=== PATIENT | female | born 1985 | race Caucasian/White ===

== ENCOUNTER 2017-09-13 22:10 | Emergency (ER) | payer OTHER ==
[~2017-09-13] VITALS: Ht 165.1 cm; Wt 72.6 kg
--- NOTE | 2017-09-13 23:01 | ED CARDIAC/CP/PALPITATIONS ---
History of Present Illness General Chief Complaint: General Adult Stated Complaint: PANIC ATTACK Source: patient Exam Limitations: no limitations Vital Signs & Intake/Output Vital Signs & Intake/Output Vital Signs Date Time Temp Pulse Resp B/P B/P Pulse O2 O2 Flow FiO2 Mean Ox Delivery Rate 09/14 0030 98.2 92 18 115/76 97 Room Air 09/13 2216 98.1 109 18 114/78 97 Room Air ED Intake and Output 09/14 0000 09/13 1200 Intake Total Output Total Balance Patient 160 lb Weight Weight Reported by Patient Measurement Method Allergies Coded Allergies: cat dander (SNEEZING PER PT 09/13/17) dog dander (SNEEZING PER PT 09/13/17) Triage Note: PT FROM HOME C/O OF ANXIETY ATTACK 45 MINS PRIOR TO ARRIVAL. PT STATES ANXIETY ATTACKS IN THE PAST AND HAS XANEX PRESCRIBED TO PT. PT SELF MEDICATED WITH 2MG XANEX 10 MINS AND 45 MINS PRIOR TO ARRIVAL FOR ATTACK THAT WAS CAUSED BY STRESS. PT STATES HEART RACING, FLUSTERED, DIFFICULTY BREATHING. PT DENIES ARM NUMBNESS/TINGLING, JAW OR BACK PAIN. Triage Nurses Notes Reviewed? yes Onset: Abrupt Duration: hour(s): (1), better, gone now Timing: recent history Quality/Severity: moderate, pressure Location: central Radiation: no radiation Activities at Onset: emotional stress Prior Chest Pain/Card Workup: no prior chest pain, no prior cardiac workup Nitro Today/Relief: no nitro taken today Aspirin Today: no aspirin today Associated Symptoms: shortness of breath LMP (ages 10-50): unknown : No Patient currently breastfeeds: No HPI: 31-year-old female past medical history of anxiety presents for evaluation of a possible panic attack. Patient states that about 1 hour prior to presentation some he felt intense anxiety sweats chills nausea palpitations shortness of breath and chest pressure. This lasted about 45 minutes. She states that she took a dose of Xanax shortly after symptoms started at the time she read the emergency department her symptoms had resolved. She states she has had similar episodes in the past on multiple occasions. Currently she has no chest pain or any other symptoms. She states that she was at rest when the symptoms began but that she was in emotional stress. No hemoptysis or edema. No personal or family history of heart disease. (Dionisio RUBIO,Sekou) Past History Travel History Traveled to [place] past 21 day No Medical History Any Pertinent Medical History? see below for history Psychiatric: ADHD Surgical History Surgical History: non-contributory Psychosocial History What is your primary language Norwegian Tobacco Use: Never used Family History Hx Contributory? No (Sekou Blackman) Review of Systems Review of Systems Constitutional: Reports: no symptoms. EENTM: Reports: no symptoms. Respiratory: Reports: see HPI, short of breath. Cardiovascular: Reports: see HPI, chest pain, palpitations. GI: Reports: no symptoms. Genitourinary: Reports: no symptoms. Musculoskeletal: Reports: no symptoms. Skin: Reports: no symptoms. Neurological/Psychological: Reports: see HPI, anxiety. Hematologic/Endocrine: Reports: no symptoms. Immunologic/Allergic: Reports: no symptoms. All Other Systems: Reviewed and Negative (Sekou Blackman) Physical Exam Physical Exam General Appearance: well developed/nourished, no apparent distress, alert, awake , anxious Head: atraumatic, normal appearance Eyes: Bilateral: normal appearance, PERRL, EOMI. Ears, Nose, Throat: normal pharynx, normal ENT inspection, hearing grossly normal Neck: normal inspection, supple, full range of motion Respiratory: normal breath sounds, chest non-tender, no respiratory distress, lungs clear Cardiovascular: normal peripheral pulses, tachycardia Peripheral Pulses: 2+ radial (R), 2+ radial (L) Gastrointestinal: soft, non-tender Back: normal inspection, normal range of motion, no vertebral tenderness Extremities: normal inspection, normal range of motion, no edema Neurologic/Psych: no motor/sensory deficits, awake, alert, oriented x 3, normal gait, normal mood/affect Skin: intact, normal color, warm/dry Lymphatic: no anterior cervical bhavik Core Measures ACS in differential dx? No CVA/TIA Diagnosis No Sepsis Present: No Sepsis Focused Exam Completed? No (Sekou Blackman) Progress Differential Diagnosis: AMI, aortic dissection, atrial fibrillation, CHF/pulm edema, costochondritis, musculoskeletal pain, pericarditis, pneumonia, pneumothorax, PSVT, pulmonary embolism, PUD/GERD, PVCs/PACs, respiratory failure , unstable angina Plan of Care: Orders Procedure Date/time Status Add-on Test (ER Only) 09/13 2353 Active Add-on Test (ER Only) 09/13 2350 Active TSH REFLEX 09/13 232 Complete MAGNESIUM 05/2326 Complete TROPONIN LEVEL 09/13 2309 Complete HUMAN BETA HCG SCREEN 09/13 2309 Complete D-DIMER 09/13 2309 Complete COMPREHENSIVE METABOLIC PANEL 09/13 2309 Complete CBC WITHOUT DIFFERENTIAL 09/13 2309 Complete EKG 09/13 2217 Active Laboratory Tests 09/13/172326: Anion Gap 10, Estimated GFR > 60, BUN/Creatinine Ratio 18.6, Glucose 88, Calcium 9.3, Magnesium 1.9, Total Bilirubin 0.5, AST 27, ALT 32, Alkaline Phosphatase 51 , Troponin I < 0.01, Total Protein 6.6, Albumin 3.7, Globulin 2.9, Albumin/ Globulin Ratio 1.3, TSH &T3 &Free T4 Intrp 2.000, Total Beta HCG NEGATIVE, D- Dimer High Sensitivty < 200, CBC w Diff NO MAN DIFF REQ, RBC 4.21, MCV 82.8, MCH 27.7, MCHC 33.4, RDW 14.0, MPV 7.9, Gran % 68.5, Lymphocytes % 23.1, Monocytes % 6.0, Eosinophils % 2.3, Basophils % 0.1, Absolute Granulocytes 6.6 H, Absolute Lymphocytes 2.2, Absolute Monocytes 0.6, Absolute Eosinophils 0.2, Absolute Basophils 0 Patient seen and evaluated. She is here for episodes of anxiety chest pressure or shortness of breath and palpitations. Currently she is asymptomatic her symptoms resolved several minutes before arriving. She took Xanax and is feeling better. She denies any other drug use. Send multiple similar episodes in the past. Initial EKG shows sinus tach. Labs drawn chest x-ray ordered. Blood work did not show any acute findings troponin and d-dimer are negative. Patient refused chest x-ray, repeat EKG/troponin. She requests to go home. Discussed the patient about the risks of doing a second set and not doing a chest x-ray. Patient is alert and oriented 3 she understands risks she is requesting to go home. The primary care doctor soon as possible return to the emergency department any time any concerns. Patient agrees the plan Initial ED EKG: SINUS TACH RATE 104 (Sekou Blackman) Departure Departure Disposition: HOME OR SELF CARE Condition: Stable Clinical Impression Primary Impression: Panic attack Referrals: Patient Has No Primary Care Dr (PCP/Family) Additional Instructions: It is recommended that you stay for further evaluation including a chest x-ray. Not staying for a full evaluation could result in negative health effects including or disability. you should follow-up with your primary care doctor to review all results of today's visit. Monitor symptoms closely return anytime with any concerns. Departure Forms: Customer Survey General Discharge Information (Sekou Blackman) PA/VEHICLE MECHANIC Co-Sign Statement Statement: ED Attending supervision documentation- [] I saw and evaluated the patient. I have also reviewed all the pertinent lab results and diagnostic results. I agree with the findings and the plan of care as documented in the PA's/VEHICLE MECHANIC's documentation. [X] I have reviewed the ED Record and agree with the PA's/VEHICLE MECHANIC's documentation. [] Additions or exceptions (if any) to the PAs/VEHICLE MECHANIC's note and plan are summarized below: [] (Ana TRAVIS,Aguilar Barksdale) Critical Care Note Critical Care Note Critical Care Time: non-applicable (Sekou Blackman)
[2017-09-13 23:35] LABS: ABSOLUTE BASOPHIL COUNT 0 /CUMM (0.0-0.2); ABSOLUTE EOSINOPHIL COUNT 0.2 /CUMM (0.0-0.7); ABSOLUTE GRANULOCYTE CT 6.6 /CUMM (1.4-6.5); ABSOLUTE LYMPH COUNT 2.2 /CUMM (1.2-3.4); ABSOLUTE MONOCYTE COUNT 0.6 /CUMM (0.10-0.60); BASOPHIL % 0.1 % (0.0-2.0); EOSINOPHIL % 2.3 % (0-5); GRANULOCYTE % 68.5 % (42.2-75.2); HEMATOCRIT 34.9 % (37-47); MEAN CORPUSCULAR HGB 27.7 PG (27.0-31.0); MEAN CORPUSCULAR HGB CONC 33.4 G/DL (33.0-37.0); MEAN CORPUSCULAR VOLUME 82.8 FL (81.0-99.0); MEAN PLATELET VOLUME 7.9 FL (7.4-10.4); PLATELET COUNT 316 /CUMM (130-400); RED BLOOD CELL CT 4.21 /CUMM (4.20-5.40); WHITE BLOOD CELL COUNT 9.7 /CUMM (4.8-10.8)
[2017-09-14 00:30] VITALS: BP 115/76
== END 2017-09-14 00:53 ==
LOC: ERH 22:10
PROVIDERS: Physician Assistant Medical
DX: F41.0 Panic disorder [episodic paroxysmal anxiety] (principal); R07.89 Other chest pain; R00.2 Palpitations; R06.02 Shortness of breath
CPT/HCPCS: 93005; 93010